=== PATIENT | male | born 1955 | race African-American/Black ===

== ENCOUNTER 2017-02-27 10:32 | Emergency (ER) | payer MEDICAID ==
[~2017-02-27] VITALS: Ht 180.3 cm; Wt 115.0 kg
[2017-02-27 12:36] LABS: CLARITY URINE CLOUDY (CLEAR); COLOR URINE ORANGE (YELLOW); GLUCOSE URINE NEGATIVE (NEGATIVE); KETONES URINE NEGATIVE (NEGATIVE); LEUKOCYTE ESTERASE URINE 3+ (NEGATIVE); NITRITE URINE NEGATIVE (NEGATIVE); OCCULT BLOOD URINE 3+ (NEGATIVE); PH URINE 5.5 (4.5-8.0); PROTEIN URINE TRACE (NEGATIVE); SPECIFIC GRAVITY URINE 1.017 (1.005-1.030)
[2017-02-27] MEDS ORDERED: ACETAMINOPHEN WITH CODEINE 300/30MG TABLET PO ONE (12:45)
[2017-02-27 14:45] VITALS: BP 154/81
== END 2017-02-27 15:05 | disposition home or self-care (01) ==
LOC: ER 11:16
DX: Z46.6 Encounter for fitting and adjustment of urinary device (principal); N39.0 Urinary tract infection, site not specified; E11.9 Type 2 diabetes mellitus without complications; I10 Essential (primary) hypertension; F12.10 Cannabis abuse, uncomplicated
CPT/HCPCS: 51702; 81001; 99284; Z7610; A4315